=== PATIENT | female | born 1980 | race Caucasian/White ===

== ENCOUNTER 2022-06-27 05:34 | Day surgery (SDC) | payer OTHER ==
[2022-06-20 10:22] LABS: BASOPHILS # (AUTO) 0.1 X10'3 (0-0.2); BASOPHILS % (AUTO) 0.9 % (0-1); EOSINOPHILS # (AUTO) 0.1 X10'3 (0-0.9); EOSINOPHILS % (AUTO) 1.2 % (0-6); LYMPHOCYTES # (AUTO) 2.3 X10'3 (1.1-4.8); LYMPHOCYTES % (AUTO) 30.2 % (21-51); MEAN CORPUSCULAR HEMOGLOBIN 28.6 PG (27.0-31.0); MEAN CORPUSCULAR HGB CONC 33.8 g/dL (33.0-36.5); MEAN CORPUSCULAR VOLUME 84.7 FL (78-98); MEAN PLATELET VOLUME 8.3 FL (7.4-10.4); MONOCYTES # (AUTO) 0.5 X10'3 (0-0.9); MONOCYTES % (AUTO) 7.2 % (2-12); NEUTROPHILS # (AUTO) 4.5 X10'3 (1.8-7.7); NEUTROPHILS % (AUTO) 60.5 % (42-75); PRE OP HEMATOCRIT 42.6 % (35.0-45.0); PRE OP HEMOGLOBIN 14.4 g/dL (12.0-16.0); PRE OP PLATELET COUNT 224 X10'3 (140-440); RED BLOOD COUNT 5.04 X10'6 (4.20-5.60); RED CELL DISTRIBUTION WIDTH 14.1 % (11.5-14.5)
[2022-06-20 11:22] LABS: HCG SERUM QL NEGATIVE
[2022-06-20 12:03] LABS: ALBUMIN 3.8 G/DL (3.4-5.0); ALBUMIN/GLOBULIN RATIO 1.1 (1.1-1.5); ALKALINE PHOSPHATASE 50 IU/L (46-116); BLOOD UREA NITROGEN 12 MG/DL (7-18); BUN/CREATININE RATIO 15.6 (6.6-38.0); CALCIUM 8.3 MG/DL (8.5-10.1); CHLORIDE 104 MMOL/L (99-107); CREATININE 0.77 MG/DL (0.40-0.90); PRE OP ALT 17 U/L (30-65); PRE OP ANION GAP 9 (8-16); PRE OP AST 12 U/L (10-37); PRE OP BILIRUB, TOTAL 0.3 MG/DL (0.0-1.0); PRE OP GLUCOSE 92 MG/DL (70-104); PRE OP POTASSIUM 4.5 MMOL/L (3.4-5.1); PRE OP SODIUM 140 MMOL/L (135-145); TOTAL CARBON DIOXIDE 27.1 MMOL/L (24-32); TOTAL PROTEIN 7.2 G/DL (6.4-8.2); eGFR 83 ML/MIN
[~2022-06-27] VITALS: Ht 165.1 cm; Wt 52.6 kg
[2022-06-27] VITALS (12 sets, daily range): BP systolic 109–125; BP diastolic 62–83
[~2022-06-27 05:34] MED LIST: ESTROGEN VG; TESTOST VG; famotidine 20mg tablet PO ONE; ringers solution, lacted 1,000 ML IV SCH; vancomycin/NS 1 GM in NS 250 ML IV ONE
[2022-06-27] MEDS ORDERED: BUPIVAcaine/PF 2.5 mg/ml (0.25%) 30ml vial ONE (06:49)
[2022-06-27] MEDS ORDERED: sevoflurane 250ml liquid IH ONE (07:15)
[2022-06-27] MEDS ORDERED: glycopyrrolate 0.2mg/ml inj ONE (07:15)
[2022-06-27] MEDS ORDERED: fentaNYL/PF 50MCG/1 ML 2ML syringe ONE ×2 (07:17→07:44)
[2022-06-27] MEDS ORDERED: midazolam 1 mg/ML 2ml injection ONE (07:18)
[2022-06-27] MEDS ORDERED: propofol inj 20 ML IV ONE (07:20)
[2022-06-27] MEDS ORDERED: rocuronium 10mg/ml inj IV ONE (07:20)
[2022-06-27] MEDS ORDERED: LIDOcaine 2% (20mg/ml) 5ml vial ONE (07:20)
[2022-06-27] MEDS ORDERED: dexamethasone sod phosphate 4mg/ml inj. ONE (07:28)
[2022-06-27] MEDS ORDERED: sugammadex 200mg/2ml injection IV ONE (07:28)
[2022-06-27] MEDS ORDERED: ondansetron/PF 4mg/2ml inj ONE (07:28)
[2022-06-27] MEDS ORDERED: BUPIVAcaine 2.5mg/ml inj 50ml vial (contains preservative) IM ONE (07:50)
--- NOTE | 2022-06-27 08:03 | NUR ---
Received from OR via [facility], accompanied by Anesthesiologist DR EVANS and report given by Anesthesiologist AND MAXILLOFACIAL SURGEON. PT DROWSY, DENIES PAIN. ABDOMEN W/2 SMALL LAP SITES W/DERMABOND CDI. Addendum: 06/27/22 at 0880 by Genevieve Alcazar RN Amended: Links added.
[2022-06-27] MEDS ORDERED: morphine 4 MG/ML inj SYRINge IV PRN (08:50)
[2022-06-27] MEDS ORDERED: meperidine/PF 25mg/ml syringe IV PRN ×2 (08:50)
[2022-06-27] MEDS ORDERED: ondansetron/PF 4mg/2ml inj IV PRN (08:50)
[2022-06-27] MEDS ORDERED: morphine 2 MG/ML inj. syringe IV PRN (08:50)
[2022-06-27] MEDS ORDERED: proCHLORperazine 10 MG/2 ml inj IV PRN (08:50)
[2022-06-27] MEDS ORDERED: ringers solution, lacted 1,000 ML IV SCH (08:50)
[2022-06-27] MEDS: meperidine/PF 25mg/ml syringe IV PRN ×2 (08:54→09:12)
[2022-06-27] MEDS ORDERED: acetaminophen 1,000mg/100ml IV 100 ML IV ONE (08:55)
--- NOTE | 2022-06-27 09:53 | NUR ---
PT UP AND AMBULATES SAFELY, VOID X 2, PAIN TOLERABLE. D/C INSTRUCTIONS GONE OVER AND GIVEN TO PT WHO VERBALIZED UNDERSTANDING. PT D/CD TO HOME VIA W/C TO PRIVATE VEHICLE W/O INCIDENT. Addendum: 06/27/22 at 1011 by Genevieve Alcazar RN Amended: Links added.
== END 2022-06-27 09:53 | disposition home or self-care (01) ==
LOC: PAS 05:34
PROVIDERS: ATTEND Specialist
DX: Z30.2 Encounter for sterilization (principal); Z79.899 Other long term (current) drug therapy; Z98.890 Other specified postprocedural states; Z88.0 Allergy status to penicillin; Z88.8 Allergy status to other drugs, medicaments and biological substances; F41.9 Anxiety disorder, unspecified; D64.9 Anemia, unspecified
CPT/HCPCS: 36415; 58670; 80053; 82948; 84703; 85025; 87811; J0131; J1100; J2175; J2250; J2405; J2704; J3010; J3370; J3490; J7030; J7120; Z7506; Z7512; A4618; A7000